=== PATIENT | female | born 1995 | race Hispanic/Latino ===

== ENCOUNTER → 2022-11-03 12:47 | Outpatient (CLI) | payer OTHER, SELFPAY ==
--- NOTE | ~2022-11-03 | MR_ITS ---
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 TECHNIQUE: Magnetic resonance imaging (MRI) of the brain and brainstem was performed without intraven ous contrast. COMPARISON: None. FINDINGS: There is no intracranial hemorrhage, acute infarction, or abnormal intracranial mass lesion . The ventricles are normal in size. The paranasal sinuses are clear. The orbits are normal. The mast oid air cells are normal. The internal auditory canals and inner and middle ears are normal. The trig eminal nerves are normal. IMPRESSION: 1. Normal brain. Reviewed, dictated and finalized at location E. IMPRESSION: 1. Normal brain.
== END ==
PROVIDERS: PCP Family Medicine; Visit Provider Family Medicine
DX: G51.31 Clonic hemifacial spasm, right (principal)
CPT/HCPCS: 70551